=== PATIENT | female | born 1980 | race Asian ===

== ENCOUNTER 2018-03-03 22:48 | Inpatient (IN) | payer OTHER ==
[~2018-03-03 22:48] MED LIST: Ketorolac Tromethamine 30 MG/ML VIAL ONE; PHENYLEPHRINE-NS 100 MCG/ML 10 ML SYRINGE ONE; ePHEDrine/0.9% NaCl/PF SYRINGE 50 mg/10 ml ONE
[2018-03-03 23:19] VITALS: BMI 33.2
[2018-03-03] MEDS ORDERED: Labetalol HCl 100 MG/20 ML VIAL SLOW IVP PRN (23:36)
[2018-03-03] MEDS ORDERED: Ondansetron HCl/PF 4 MG/2 ML Vial IVP PRN (23:42)
[2018-03-03] MEDS ORDERED: Lactated Ringer's 1,000 ML IV SCH ×2 (23:45)
[2018-03-04] MEDS ORDERED: NIFEdipine 10 MG CAP PO SCH (00:15)
[2018-03-04 00:39] LABS: Hemoglobin 10.6 g/dL (12.0-16.0); Mean Corpuscular HGB CONC 31.5 g/dL (32.0-36.0); Mean Corpuscular Hemoglobin 19.9 pg (27.0-31.0); Mean Corpuscular Volume 63.2 fl (81.0-99.0); Mean Platelet Volume 10.2 fL (7.4-10.4); Platelet Count 275 thou/uL (130-400); RBC Distribution Width 15.2 % (11.5-14.5); Red Blood Cell (RBC) Count 5.31 mill/uL (4.20-5.40); White Blood Cell (WBC) Count 9.4 thou/uL (4.8-10.8)
[2018-03-04 00:44] LABS: ALT (SGPT) 16 U/L (8-55); AST (SGOT) 28 U/L (5-34); Alkaline Phosphatase 233 U/L (40-150); Anion Gap 12 mmol/L (10-20); BUN (Urea Nitrogen) 13 mg/dL (7.0-18.7); Bilirubin, Total 0.3 mg/dL (0.2-1.2); Calc. Creatinine Clearance 141 mL/min (70-130); Calcium 7.7 mg/dL (7.8-10.44); Carbon Dioxide 18 mmol/L (22-29); Chloride 109 mmol/L (98-107); Estimated GFR-MDRD Greater than 90; Globulin 2.2 g/dL (2.4-3.5); Glucose 92 mg/dL (70-105); Potassium 5.4 mmol/L (3.5-5.1); Protein, Total 4.2 g/dL (6.0-8.3); Sodium 134 mmol/L (136-145)
[2018-03-04 00:58] LABS: HBSAg Index 0.38 S/CO (0-0.99); Hep B Surf Ag Non-Reactive S/CO (NonReactive); Syphilis Antibody Nonreactive (Nonreactive); Syphilis Antibody Index 0.02 S/CO (<1.00 Non-Reactive)
[2018-03-04] MEDS: Bicitra 30 ML UDCUP PO SCH (01:03)
[2018-03-04] MEDS: CEFAZOLIN/Water 2 GM/20 ML SYRINGE SLOW IVP SCH (01:04)
[2018-03-04] MEDS ORDERED: Morphine PF 1 MG/ML SYR ONE (01:26)
[2018-03-04] MEDS ORDERED: Lidocaine 1% PF 5 ML VIAL ONE (01:27)
[2018-03-04] MEDS ORDERED: Ketorolac Tromethamine 30 MG/ML VIAL ONE (01:27)
[2018-03-04] MEDS ORDERED: Oxytocin 10 UNITS/ML VIAL ONE (01:27)
[2018-03-04] MEDS ORDERED: Bupivacaine 0.75% W/DEXTROSE 8.25% 2 ML AMP ONE (01:27)
[2018-03-04] MEDS ORDERED: PHENYLEPHRINE-NS 100 MCG/ML 10 ML SYRINGE ONE (01:27)
[2018-03-04] MEDS ORDERED: Naloxone HCl 0.4 mg/ml Vial IV PRN ×2 (01:28→02:44)
[2018-03-04] MEDS ORDERED: Ketorolac Tromethamine 30 MG/ML VIAL IVP PRN ×2 (01:28→02:44)
[2018-03-04] MEDS ORDERED: Promethazine HCl 25 MG SUPP PR PRN ×2 (01:28→02:44)
[2018-03-04] MEDS ORDERED: Eucerin (Mineral Oil/Petrolatum,White) 30 gm Jar TOP PRN ×2 (01:28→02:44)
[2018-03-04] MEDS ORDERED: Meperidine HCl/PF 25 MG/ML VIAL SLOW IVP PRN (01:28)
[2018-03-04] MEDS ORDERED: Naloxone HCl 0.4 mg/ml Vial IVP PRN ×4 (01:28→02:44)
[2018-03-04] MEDS ORDERED: HYDROmorphone 2 MG/ML VIAL SLOW IVP PRN (01:28)
[2018-03-04] MEDS ORDERED: Ondansetron HCl/PF 4 MG/2 ML Vial IVP PRN ×3 (01:28→02:44)
[2018-03-04] MEDS ORDERED: Promethazine HCl 25 MG/ML VIAL IM PRN ×2 (01:28→02:44)
[2018-03-04] MEDS ORDERED: diphenhydrAMINE 50 MG/ML VIAL IVP PRN ×2 (01:28→02:44)
[2018-03-04] MEDS ORDERED: Ketorolac Tromethamine 30 MG/ML VIAL IVP SCH (01:30)
[2018-03-04] MEDS ORDERED: Communication Order-Pharmacy FS SCH ×2 (01:30→02:45)
[2018-03-04] MEDS ORDERED: ePHEDrine/0.9% NaCl/PF SYRINGE 50 mg/10 ml ONE (01:35)
[2018-03-04] MEDS ORDERED: Promethazine HCl 25 MG/ML VIAL ONE (01:45)
[2018-03-04 03:06] LABS: Protein, Urine Random Quant Greater than 2000 mg/dL
[2018-03-04] MEDS: Magnesium Sulfate 20 gm/500 ml 20 GM/500 ML BAG IVPB SCH ×3 (03:17→21:44)
[2018-03-04] MEDS ORDERED: Calcium Gluconate 4.6 MEQ in Sodium Chloride 0.9% 100 ML IVPB PRN (03:35)
[2018-03-04] MEDS ORDERED: HYDROcodone/Acetaminophen 5/325 mg Tablet PO PRN ×2 (03:36)
[2018-03-04] MEDS ORDERED: Simethicone Chewable 80 MG TAB PO PRN (03:36)
[2018-03-04] MEDS ORDERED: Lanolin Ointment 7 GM TUBE TOP PRN (03:36)
[2018-03-04] MEDS ORDERED: Magnesium Sulfate 20 GM/WATER 500 ML BAG IVPB SCH (03:45)
[2018-03-04] MEDS ORDERED: Magnesium Sulfate 20 gm/500 ml 20 GM/500 ML BAG ONE (06:18)
[2018-03-04] MEDS ORDERED: Adacel (T-DAP) 0.5 ML VIAL IM ONE (09:00)
[2018-03-04] MEDS ORDERED: Prenatal Vitamin 1 TAB PO SCH (09:00)
--- NOTE | 2018-03-04 09:54 | OP ---
DATE OF PROCEDURE: 03/04/2018 PREOPERATIVE DIAGNOSES: 1. Intrauterine at 36 weeks and 3 days. 2. Di/di twin gestation. 3. Preeclampsia with severe features. POSTOPERATIVE DIAGNOSES: 1. Intrauterine at 36 weeks and 3 days. 2. Di/di twin gestation. 3. Preeclampsia with severe features. PROCEDURE PERFORMED: Primary lower transverse section. ANESTHESIA: Spinal. SURGEON: Jayesh Voss M.D. [employer]CH SERVICES MANAGER: Bere Wallace PA-C COUNT: Correct. COMPLICATIONS: None. FINDINGS: Delivery. Fetus A delivered in vertex presentation at 0156 hours with a weight of 2325 grams, Apgars of 8 and 3-vessel cord. Baby B delivered at 0158 hours, male, Apgars of 8 and 9, weight unavailable. Normal appearing uterus. No adhesions. DESCRIPTION OF PROCEDURE: The patient is a 37-year-old G1, P0 female with an intrauterine , twin-di gestation at 36 weeks and 3 days who presented to Labor and Delivery with severe range pressures and significant swelling. The patient denies shortness of breath, chest pain, and right upper quadrant tenderness. She does report swelling in her face and her hands, her feet and her legs. She denies vaginal bleeding. A decision was made quickly to move to proceed with a primary as this was the original plan with Dr. Collins who was not available for delivery. The patient was given spinal anesthesia and placed in dorsal supine position with a leftward tilt. She was prepared and draped in normal sterile fashion. Once anesthesia was deemed adequate a skin incision was made in a Pfannenstiel fashion down to the level of fascia. Fascia was incised and extended laterally with Hermosillo scissors. The fascia was dissected off bluntly and sharply from the underlying rectus muscles both superiorly and inferiorly. The peritoneal cavity was entered into bluntly and extended bluntly. An Chuckie O retractor was then inserted giving access to the lower uterine segment. A lower transverse hysterotomy was performed and baby A was brought to the hysterotomy and delivered without difficulty in vertex presentation to a sterile field. The fetus was bulb suctioned. The cord was clamped and cut and the infant was handed off to waiting attendants. Baby B was then delivered to the sterile field without difficulty in vertex presentation. The cord was clamped and cut and the infant was handed off to the waiting attendants. Cord A and cord B were marked for easy identification. The family had requested cord blood collection. Cord blood was collected making sure that the cords were properly identified to the appropriate fetus. Once that was collected, the placenta was then manually extracted and the cavity was cleared of all clot and debris. The hysterotomy was then closed with #1 Monocryl in a running locked fashion. A second imbricating layer was performed. There were a couple of spots requiring a [id number] for hemostasis. Once this was completed, the Chuckie O retractor was removed. The abdomen was irrigated and the peritoneum was then closed with 3-0 chromic in a running fashion. This fascia was closed with 0 vicryl in a running fashion. Subcutaneous fat was closed in 2 layers with 3-0 plain gut in a running fashion. Skin was closed with 4-0 Monocryl in running fashion. The procedure at this time was completed and the patient was taken to recovery room in stable condition. TIFFANY
[2018-03-04] MEDS: Sodium Chloride 0.9% 1,000 ML IV SCH ×2 (12:22→21:43)
[2018-03-04] MEDS ORDERED: Levothyroxine Sodium 50 MCG TAB PO SCH ×2 (16:26→16:45)
[2018-03-04 17:09] LABS: #Lymphocytes 0.7 thou/uL (1.20-3.40); #Monocytes 0.6 thou/uL (0.11-0.59); #Neutrophils 15.8 thou/uL (1.40-6.50); %Basophils 0.1 % (0.0-1.0); %Lymphocytes 4.3 % (21.0-51.0); %Monocytes 3.7 % (0.0-10.0); %Neutrophils 91.9 % (42.0-75.0); Hemoglobin 8.4 g/dL (12.0-16.0); Mean Corpuscular HGB CONC 32.9 g/dL (32.0-36.0); Mean Corpuscular Hemoglobin 20.9 pg (27.0-31.0); Mean Corpuscular Volume 63.6 fl (81.0-99.0); Platelet Count 230 thou/uL (130-400); RBC Distribution Width 14.9 % (11.5-14.5); Red Blood Cell (RBC) Count 4.04 mill/uL (4.20-5.40); White Blood Cell (WBC) Count 17.2 thou/uL (4.8-10.8)
[2018-03-04 17:27] LABS: ALT (SGPT) 15 U/L (8-55); AST (SGOT) 35 U/L (5-34); Albumin 1.7 g/dL (3.5-5.0); Alkaline Phosphatase 163 U/L (40-150); Anion Gap 8 mmol/L (10-20); BUN (Urea Nitrogen) 11 mg/dL (7.0-18.7); Bilirubin, Total 0.2 mg/dL (0.2-1.2); Calc. Creatinine Clearance 146 mL/min (70-130); Calcium 6.8 mg/dL (7.8-10.44); Carbon Dioxide 20 mmol/L (22-29); Chloride 107 mmol/L (98-107); Estimated GFR-MDRD Greater than 90; Globulin 2.1 g/dL (2.4-3.5); Glucose 90 mg/dL (70-105); Magnesium 6.3 mg/dL (1.6-2.6); Potassium 5.2 mmol/L (3.5-5.1); Protein, Total 3.8 g/dL (6.0-8.3); Sodium 130 mmol/L (136-145)
[2018-03-04 17:30] LABS: Anisocytosis SLIGHT = 6-15 cells (100X) (0-5/hpf); Basophilic Stippling SLIGHT = 1-2 cells (100X) (None Seen); Elliptocytes SLIGHT = 2-5 cells (100X) (0-1/hpf); Hypochromia SLIGHT = 6-15 cells (100X) (0-5/hpf); Large Platelets SLIGHT; MDiff Complete? YES; Microcytosis SLIGHT = 6-15 cells (100X) (0-5/hpf); Ovalocytes SLIGHT = 2-5 cells (100X) (0-1/hpf); PLT Morphology Comment Appears Adequate; Poikilocytosis SLIGHT = 6-15 cells (100X) (0-5/hpf); Polychromasia SLIGHT = 2-3 cells (100X) (0-2/hpf); Schistocytes SLIGHT = 2-5 cells (100X) (0-1/hpf); Target Cells SLIGHT = 2-5 cells (100X) (0-1/hpf); Tear Drops SLIGHT = 2-5 cells (100X) (0-1/hpf)
--- NOTE | 2018-03-04 22:33 | PDOC.PP ---
Post Progress Note Post Day #: 1 LICU PO intake tolerated: yes Flatus: no Ambulation: no Vital Signs (12 hours) Temp Pulse Resp BP 03/04/18 19:55 98.0 F 82 18 03/04/18 19:00 98.0 F 03/04/18 15:07 98.3 F 99 18 03/04/18 15:00 98.3 F 99 18 139/73 03/04/18 12:00 98.1 F 100 18 03/04/18 11:00 98.1 F Weight Weight 170 lb - Physical Examination General: NAD Cardiovascular: no m/r/g, RRR Respiratory: clear to auscultation bilaterally Abdominal: + bowel sounds, no distention Skin: CS incision dry & intact, no rash Neurological: no gross focal deficits Psychiatric: A&Ox3, normal affect Result Diagrams: 03/04/18 17:00 03/04/18 17:00 Additional Labs: Post Labs Blood Type O POSITIVE 03/04/18 00:14 Hep Bs Antigen Non-Reactive S/CO (NonReactive) 03/04/18 00:14 (1) Severe pre-eclampsia Code(s): O14.10 - SEVERE PRE-ECLAMPSIA, UNSPECIFIED TRIMESTER Status: Acute - Assessment/Plan ICU care on L&D. doing well. UOP gradually increasing to 80-100 per hour. Labs reviewed. DC mag 24 hr post delivery and transfer to floor in am.
[2018-03-05] MEDS: Bicitra 30 ML UDCUP PO SCH (01:25)
[2018-03-05] MEDS: CEFAZOLIN/Water 2 GM/20 ML SYRINGE SLOW IVP SCH (01:25)
[2018-03-05] MEDS: Sodium Chloride 0.9% 1,000 ML IV SCH (01:26)
[2018-03-05] MEDS ORDERED: Meperidine HCl/PF 25 MG/ML VIAL IM PRN (03:44)
[2018-03-05] MEDS ORDERED: Acetaminophen 325 MG TAB PO PRN (03:44)
[2018-03-05] MEDS ORDERED: Lanolin Ointment 7 GM TUBE TOP PRN (03:44)
[2018-03-05] MEDS ORDERED: Ondansetron HCl/PF 4 MG/2 ML Vial IVP PRN (03:44)
[2018-03-05] MEDS ORDERED: Lactated Ringer's 1,000 ML IV SCH (03:44)
[2018-03-05] MEDS ORDERED: Zolpidem Tartrate 5 MG TAB PO PRN (03:44)
[2018-03-05] MEDS ORDERED: diphenhydrAMINE 25 MG CAP PO PRN (03:44)
[2018-03-05] MEDS: Simethicone Chewable 80 MG TAB PO PRN ×3 (06:23→21:57)
--- NOTE | 2018-03-05 07:39 | PDOC.PP ---
Post Progress Note Post Day #: 2 Subjective: pt feels better. bps normalizing. edema less in face PO intake tolerated: yes Flatus: yes Ambulation: yes Vital Signs (12 hours) Temp Pulse Resp 03/05/18 04:50 98.0 F 82 18 03/05/18 03:44 20 03/05/18 03:40 98.0 F 82 18 03/04/18 19:55 98.0 F 82 18 Weight Weight 170 lb - Physical Examination General: NAD Cardiovascular: no m/r/g, RRR Respiratory: clear to auscultation bilaterally, non-labored breathing Abdominal: + bowel sounds, lochia, no distention, appropriately TTP Extremities: negative homans (B) Skin: CS incision dry & intact, no rash Neurological: no gross focal deficits Psychiatric: A&Ox3, normal affect Result Diagrams: 03/04/18 17:00 03/04/18 17:00 Additional Labs: Post Labs Blood Type O POSITIVE 03/04/18 00:14 Hep Bs Antigen Non-Reactive S/CO (NonReactive) 03/04/18 00:14 (1) Severe pre-eclampsia Code(s): O14.10 - SEVERE PRE-ECLAMPSIA, UNSPECIFIED TRIMESTER Status: Acute Qualifiers: Trimester: third trimester Qualified Code(s): O14.13 - Severe pre-eclampsia , third trimester - Assessment/Plan pt continues to improve. good uop. off mag. no cullen. continue post op care. possible am 03/07 discharge.
[2018-03-05] MEDS ORDERED: Adacel (T-DAP) 0.5 ML VIAL IM ONE (09:00)
[2018-03-05] MEDS ORDERED: Ibuprofen 800 MG TAB PO SCH (10:00)
[2018-03-05] MEDS: Levothyroxine Sodium 50 MCG TAB PO SCH (10:13)
[2018-03-05] MEDS: Prenatal Vitamin 1 TAB PO SCH (10:13)
[2018-03-05] MEDS: Docusate Calcium (SURFAK) 240 MG CAP PO SCH ×2 (10:13→21:57)
[2018-03-05] MEDS: Ferrous Sulfate 325 MG TAB PO SCH (10:14)
[2018-03-05] MEDS ORDERED: Meperidine HCl/PF 25 MG/ML VIAL SLOW IVP PRN ×2 (16:02)
[2018-03-05] MEDS ORDERED: Promethazine HCl 25 MG/ML VIAL SLOW IVP PRN (16:04)
--- NOTE | 2018-03-05 16:17 | PDOC.EVN ---
Event Note - Event Note Event Note: CTSP by floor for c/o pain. Record reviewed. Now POD#2 for twins and PIH. Magnesium was stopped at 2a this morning. She denies N/V, c/o pain with walking, movement. VSS, AF, pulse= 79. Dressing is dry and intact. Abdomen is only mildly distended. A; slow return of bowel fx. 2* to C/S and magnesium. P; CBC, chem 7, restart IV and allow only clear liquids at this time, Demerol/ Phenergan IVPB for pain only as needed Observe
[2018-03-05 16:27] LABS: #Eosinphils 0.1 thou/uL (0.0-0.7); #Monocytes 0.7 thou/uL (0.11-0.59); #Neutrophils 11.5 thou/uL (1.40-6.50); %Basophils 0.2 % (0.0-1.0); %Eosinophils 0.6 % (0.0-10.0); %Lymphocytes 7.6 % (21.0-51.0); %Monocytes 5.1 % (0.0-10.0); %Neutrophils 86.5 % (42.0-75.0); Hemoglobin 8.4 g/dL (12.0-16.0); Mean Corpuscular HGB CONC 32.6 g/dL (32.0-36.0); Mean Corpuscular Hemoglobin 20.5 pg (27.0-31.0); Mean Platelet Volume 11.2 fL (7.4-10.4); Platelet Count 210 thou/uL (130-400); RBC Distribution Width 14.7 % (11.5-14.5); Red Blood Cell (RBC) Count 4.08 mill/uL (4.20-5.40); White Blood Cell (WBC) Count 13.3 thou/uL (4.8-10.8)
[2018-03-05 16:49] LABS: BUN (Urea Nitrogen) 11 mg/dL (7.0-18.7); Calc. Creatinine Clearance 139 mL/min (70-130); Calcium 6.8 mg/dL (7.8-10.44); Carbon Dioxide 24 mmol/L (22-29); Chloride 107 mmol/L (98-107); Estimated GFR-MDRD Greater than 90; Glucose 75 mg/dL (70-105); Potassium 4.6 mmol/L (3.5-5.1); Sodium 133 mmol/L (136-145)
[2018-03-05 16:55] LABS: Anion Gap 7 mmol/L (10-20)
[2018-03-05] MEDS: Ibuprofen 800 MG TAB PO SCH ×2 (17:39→20:43)
[2018-03-05] MEDS: Sodium Chloride 0.9% 30 ML ONE ×2 (17:39→21:58)
[2018-03-05] MEDS ORDERED: Bisacodyl 10 MG SUPP PR PRN (20:52)
[2018-03-05] MEDS ORDERED: Morphine 4 MG/ML Carpuject SLOW IVP PRN (20:56)
[2018-03-05] MEDS ORDERED: Morphine 5 MG/ML SYRINGE SLOW IVP PRN (21:30)
[2018-03-05] MEDS: HYDROcodone/Acetaminophen 5/325 mg Tablet PO PRN (21:43)
[2018-03-05] MEDS ORDERED: CEFAZOLIN 2 GM in Sodium Chloride 0.9% 100 ML IVPB SCH (21:45)
[2018-03-05] MEDS ORDERED: Sodium Chloride 0.9% 20 ML ONE (21:55)
[2018-03-05] MEDS ORDERED: CEFAZOLIN/Water 2 GM/20 ML SYRINGE SLOW IVP SCH (22:00)
--- NOTE | 2018-03-05 22:49 | PRG ---
DATE OF SERVICE: 03/05/2018 HISTORY OF PRESENT ILLNESS: The patient is postop day #1, status post primary for twin ges tation and presence of preeclampsia with severe features and last exam on Baby A was breech. The pat ericka has been complaining of extreme amount of pain in her abdomen today and was asked to review and examine the patient. The patient has remained afebrile, though her most recent temperature was 99.5. Reviewing her lab work, she has a white count, it has been dropping since yesterday evening, the ev ening of postop day 0 and currently is 13.3 down from 17.2. Her hemoglobin is stable 8.5, previous h emoglobin is 8.4, platelets are 210,000. Her neutrophil percentage has dropped from 91-86 and her ne utrophil numbers have dropped from 15.8 to 11.5, no bands present. The patient reports that she has a lot of crampy pain and she is concerned that she has an ileus and is concerned that she may have in fection. Her skin has been exquisitely tender in her abdomen. On evaluation, the patient's lower ab domen around close the incision has no more color to it, but perhaps a slight erythematous look. The areas that has this slight change in color is the area that seems to be tender to touch. We removed the Aquacel and Tegaderm over her surgical incision and there is no erythema around her incision and there is no purulent drainage or blood or anything of significance. The area around her incision is soft. There is no induration, no fluctuance. The patient denies any problems with urination. In r eviewing the patient's pain medication history, she does report she has only taken today ibuprofen an d one dose of Demerol, Phenergan. We did go over typical medication use just after surgery and sugge sted that this may be in part contributing to her pain. ASSESSMENT AND PLAN: The patient is a 37-year-old female postop day 1, status post primary for twin gestation in the presence of preeclampsia with severe features. She did have significant t hird spacing when she first arrived and continues to have significant edema, though it does appear im proved since her first presentation. There is a little concern of having an intra-abdominal infectio us process at this time or endometritis or wound infection as her white count is dropping, she remain s afebrile, but due to this erythema that she is having, which may be associated with intense amount of edema that she has experienced, may also be a cellulitis that is developing. I have agreed to kwabena ce the patient on Ancef tonight and we will see how she does over the next 24 hours of medication. I n the morning on reevaluation, I hope to have less erythema or color change and certainly less tender ness to touch. The patient has agreed to take hydrocodone more routinely for now and we will be givi ng her 4 mg of morphine IV to assist with immediate pain control. A CBC will be drawn again in the [facility] for reevaluation. We will continue to monitor her more closely than typical given her finding s and will make adjustment as necessary.
[2018-03-06] MEDS: Dextrose 5%-Lactated Ringers 1,000 ML IV SCH ×2 (01:48→10:07)
[2018-03-06] MEDS: Ferrous Sulfate 325 MG TAB PO SCH ×4 (01:49→22:11)
[2018-03-06] MEDS: Simethicone Chewable 80 MG TAB PO PRN ×2 (04:10→15:26)
[2018-03-06] MEDS: HYDROcodone/Acetaminophen 5/325 mg Tablet PO PRN ×4 (04:10→21:04)
[2018-03-06] MEDS ORDERED: Sodium Chloride 0.9% 500 ML IV SCH (05:00)
[2018-03-06] MEDS: Ibuprofen 800 MG TAB PO SCH ×3 (05:14→22:07)
[2018-03-06] MEDS: CEFAZOLIN 1 GM in Sodium Chloride 0.9% 100 ML IVPB SCH ×2 (05:14→15:24)
[2018-03-06 05:58] LABS: Band 1 % (5-11); Hemoglobin 7.4 g/dL (12.0-16.0); Hypochromia SLIGHT = 6-15 cells (100X) (0-5/hpf); Lymphocytes 10 % (21-51); MDiff Complete? YES; Mean Corpuscular HGB CONC 30.9 g/dL (32.0-36.0); Mean Corpuscular Hemoglobin 19.7 pg (27.0-31.0); Mean Corpuscular Volume 63.9 fl (81.0-99.0); Mean Platelet Volume 8.2 fL (7.4-10.4); Monocytes 2 % (0-10); Neutrophil 87 % (42-75); PLT Morphology Comment Appears Adequate; Platelet Count 225 thou/uL (130-400); RBC Distribution Width 15.1 % (11.5-14.5); Red Blood Cell (RBC) Count 3.77 mill/uL (4.20-5.40); White Blood Cell (WBC) Count 10.7 thou/uL (4.8-10.8)
--- NOTE | 2018-03-06 08:30 | PRG ---
DATE OF SERVICE: 03/06/2018 SUBJECTIVE: The patient reports she is feeling much better this morning. Her pain is much better co ntrolled now that she is on schedule pain medication. She also reports her skin is not as tender to palpation since beginning antibiotics and pain medicine. The patient also reports she is ambulating, tolerating p.o., voiding on her own. She has passed flatus. PHYSICAL EXAMINATION: VITAL SIGNS: Today, blood pressure is 140/75, temperature 98.4, pulse is 75, respiratory rate of 16. GENERAL: She appears to be in no acute distress. She is alert and oriented, cooperative and pleasan t to interact with. HEENT: Head is normocephalic and atraumatic. EXTREMITIES: She has significant edema throughout her body still, including edema in the bulbar conj unctiva of her eye. Lower extremities are tense at the feet and below the knee, but there is overall improvement since admission. LABORATORY DATA: Today, white count is 10.7, down from 13.3 and 17.2 at its peak. H and H 7.4 and 2 4.1 and platelets of 225,000. ASSESSMENT AND PLAN: The patient is a 37-year-old female, who is now postoperative day 2, status pos t a primary for twins with preeclampsia with severe features. The patient had been schedul ed for a with baby A being breech. Patient is feeling better today since institution of an tibiotics and regular pain medication. I am not sure of the effect of the necessity of the antibioti c; however, patient does report that the skin is less tender. We will continue the antibiotics for 2 4 hours in the event that she was developing a cellulitis. The coloring of the skin remains the same . We will continue postoperative care. Dr. Dwayne Collins will return tomorrow.
[2018-03-06] MEDS: Prenatal Vitamin 1 TAB PO SCH (10:09)
[2018-03-06] MEDS: Docusate Calcium (SURFAK) 240 MG CAP PO SCH ×2 (10:09→22:11)
[2018-03-06] MEDS: Levothyroxine Sodium 50 MCG TAB PO SCH (10:10)
--- NOTE | 2018-03-06 11:09 | PDOC.EVN ---
Event Note - Event Note Event Note: Note: Dr Voss ordered FRANKIE house due to Bilateral LE edems. Due to edema, I do not want FRANKIE house to do inadverent tounaquet effect. So, I will order Lasix 20mg SIVP for now to mobilze the fluid. Reviewed with RN.
[2018-03-06] MEDS ORDERED: Furosemide 20 MG/2 ML VIAL SLOW IVP SCH (11:15)
[2018-03-06] MEDS ORDERED: Sodium Chloride 0.9% 10 ML ONE (14:47)
[2018-03-06] MEDS ORDERED: Furosemide 20 MG TAB PO SCH ×2 (16:00→22:00)
--- NOTE | 2018-03-06 17:31 | PDOC.EVN ---
Event Note - Event Note Event Note: Bedjon: @1730: Postop day 2: S/P CS, twins, severe PIH. BPs ok. I have seen the patient ust now again, for pm bedcheck. States passed gas and BM today. Still with 3+ Bilateral LE edema. 20mg po lasix given about 1 hour ago...will redose at 0500 to mobile fluid. Track urine output by hat in toilet.
--- NOTE | 2018-03-06 20:21 | PDOC.EVN ---
Event Note - Event Note Event Note: Patient requests redose of lasix quicker than 0500 to aid leg edema resolution. Voided about 500ml last void. Has recieved one dose of oral lasix at around 1630. I will cancel the 0500 dose and give the second oral dose 6 hours from the first.
[2018-03-07] MEDS: HYDROcodone/Acetaminophen 5/325 mg Tablet PO PRN ×2 (03:45→12:08)
[2018-03-07] MEDS ORDERED: Furosemide 20 MG TAB PO SCH ×2 (05:00→15:30)
[2018-03-07] MEDS: Ibuprofen 800 MG TAB PO SCH ×3 (05:50→22:39)
--- NOTE | 2018-03-07 06:56 | PDOC.PP ---
Post Progress Note Post Day #: 3 Subjective: Voided 3 liters after lasix po X 2...feels legs are alot better. Debbie po. Would like to stay until tomorrow PO intake tolerated: yes Flatus: yes Ambulation: yes Vital Signs (12 hours) Temp Pulse Resp BP Pulse Ox 03/07/18 03:45 98.4 F 66 18 141/78 H 03/06/18 23:50 98.0 F 76 18 162/81 H 99 03/06/18 19:43 98.0 F 75 18 162/82 H 99 Weight Weight 170 lb - Physical Examination General: NAD Cardiovascular: no m/r/g Abdominal: + bowel sounds, lochia, no distention, appropriately TTP Extremities: negative homans (B) Skin: CS incision dry & intact Neurological: no gross focal deficits Psychiatric: A&Ox3 Result Diagrams: 03/06/18 05:12 03/05/18 16:20 Additional Labs: Post Labs Blood Type O POSITIVE 03/04/18 00:14 Hep Bs Antigen Non-Reactive S/CO (NonReactive) 03/04/18 00:14 - Assessment/Plan Postop CS day 3... good response to lasix. LE edema now +2 from 3+. Feels better. Mobilization of fluid should occur now on PPD3. Severe Preeclampsia HX but BPs ok. We will observe today and plan for AM discharge on 03/08
[2018-03-07] MEDS: Docusate Calcium (SURFAK) 240 MG CAP PO SCH (09:13)
[2018-03-07] MEDS: Prenatal Vitamin 1 TAB PO SCH (09:13)
[2018-03-07] MEDS: Ferrous Sulfate 325 MG TAB PO SCH (09:13)
[2018-03-07] MEDS: Levothyroxine Sodium 50 MCG TAB PO SCH (09:16)
--- NOTE | 2018-03-07 15:25 | PDOC.EVN ---
Event Note - Event Note Event Note: Nurse called to notify increased BP systolic 160-170, increase edema from this AM and decreased urine output this afternoon. No SOB or difficulty breathing per RN report. Lasix 20mg ordered, CMP ordered and Procardia 30mg XL discussed and ordered.
[2018-03-07] MEDS ORDERED: NIFEdipine XL 30 MG TAB PO SCH (17:00)
[2018-03-07 22:39] LABS: Anion Gap 9 mmol/L (10-20); BUN (Urea Nitrogen) 7 mg/dL (7.0-18.7); Calc. Creatinine Clearance 155 mL/min (70-130); Calcium 7.8 mg/dL (7.8-10.44); Carbon Dioxide 26 mmol/L (22-29); Chloride 101 mmol/L (98-107); Estimated GFR-MDRD Greater than 90; Glucose 123 mg/dL (70-105); Sodium 132 mmol/L (136-145)
[2018-03-08] MEDS: Ferrous Sulfate 325 MG TAB PO SCH ×3 (01:04→21:13)
[2018-03-08] MEDS: Docusate Calcium (SURFAK) 240 MG CAP PO SCH ×3 (01:04→21:14)
[2018-03-08] MEDS ORDERED: Labetalol 100 MG TAB PO SCH (03:30)
[2018-03-08] MEDS: Ibuprofen 800 MG TAB PO SCH ×3 (05:17→21:12)
[2018-03-08] MEDS: Labetalol 100 MG TAB PO SCH ×2 (09:29→21:12)
[2018-03-08] MEDS: Prenatal Vitamin 1 TAB PO SCH (09:29)
[2018-03-08] MEDS: Levothyroxine Sodium 50 MCG TAB PO SCH (09:30)
[2018-03-08] MEDS: NIFEdipine XL 30 MG TAB PO SCH (09:30)
--- NOTE | 2018-03-08 16:12 | PDOC.PP ---
Post Progress Note Post Day #: 4 Subjective: POD 4, BP still w severe range over night w Procardia, Labetalol added with improvement to consistent mild range or lower. Swelling better since yesterday and voiding more regularly now. PO intake tolerated: yes Flatus: yes Ambulation: yes Vital Signs (12 hours) Temp Pulse Resp BP BP 03/08/18 09:30 94 143/91 H 03/08/18 09:29 94 142/93 H 03/08/18 09:00 98.4 F 94 20 142/93 H 03/08/18 08:00 98.4 F 94 18 03/08/18 04:52 98.9 F 72 16 158/77 H Weight Weight 170 lb - Physical Examination General: NAD Respiratory: non-labored breathing Abdominal: no distention Extremities: negative homans (B) Skin: CS incision dry & intact, no rash Neurological: no gross focal deficits Psychiatric: A&Ox3, normal affect Result Diagrams: 03/06/18 05:12 03/07/18 22:11 Additional Labs: Post Labs Blood Type O POSITIVE 03/04/18 00:14 Hep Bs Antigen Non-Reactive S/CO (NonReactive) 03/04/18 00:14 (1) Dichorionic diamniotic twin gestation Code(s): O30.049 - TWIN , DICHORIONIC/DIAMNIOTIC, UNSP TRIMESTER Status: Acute (2) 36 weeks gestation of Code(s): Z3A.36 - 36 WEEKS GESTATION OF Status: Acute (3) delivery delivered Code(s): O82 - ENCOUNTER FOR DELIVERY WITHOUT INDICATION Status: Acute (4) Severe pre-eclampsia Code(s): O14.10 - SEVERE PRE-ECLAMPSIA, UNSPECIFIED TRIMESTER Status: Acute Qualifiers: Trimester: third trimester Qualified Code(s): O14.13 - Severe pre-eclampsia , third trimester - Assessment/Plan POD4 sp 1LTCS w severe preeclampsia. BP labile sp delivery, better control w Procardia XL 30mg a day and labetalol 100mg BID. UOP steady and swelling improving daily. One baby nursing in room other in NICU. Discussed staying one more night to make sure that BP and UOP are appropriate for DC, pt agrees.
[2018-03-09] MEDS: Ibuprofen 800 MG TAB PO SCH ×2 (05:13→15:25)
[2018-03-09] MEDS: Ferrous Sulfate 325 MG TAB PO SCH (09:28)
[2018-03-09] MEDS: Prenatal Vitamin 1 TAB PO SCH (09:29)
[2018-03-09] MEDS: Levothyroxine Sodium 50 MCG TAB PO SCH (09:29)
[2018-03-09] MEDS: NIFEdipine XL 30 MG TAB PO SCH (09:29)
[2018-03-09] MEDS: Docusate Calcium (SURFAK) 240 MG CAP PO SCH (09:29)
[2018-03-09] MEDS: Labetalol 100 MG TAB PO SCH (09:32)
--- NOTE | 2018-03-09 09:45 | PDOC.PP ---
Post Progress Note Post Day #: 5 Subjective: urinating often and appropriate volume, no SOB/MURCIA, breast feeding and pumping, ambulating well, pain controlled, no dizziness, ready for DC home PO intake tolerated: yes Flatus: yes Ambulation: yes Vital Signs (12 hours) Temp Pulse Resp BP BP BP 03/09/18 09:32 91 139/89 03/09/18 09:29 91 139/89 03/09/18 05:15 98.2 F 89 20 139/80 03/08/18 23:50 98.2 F 91 18 125/73 Weight Weight 170 lb - Physical Examination General: NAD Respiratory: non-labored breathing Abdominal: no distention, appropriately TTP Fundus firm & at: below umb Extremities: negative homans (B) Skin: CS incision dry & intact (dressing dry and clean) Neurological: no gross focal deficits Psychiatric: A&Ox3, normal affect Deviation from normal: improvement in LE edema Result Diagrams: 03/06/18 05:12 03/07/18 22:11 Additional Labs: Post Labs Blood Type O POSITIVE 03/04/18 00:14 Hep Bs Antigen Non-Reactive S/CO (NonReactive) 03/04/18 00:14 (1) Dichorionic diamniotic twin gestation Code(s): O30.049 - TWIN , DICHORIONIC/DIAMNIOTIC, UNSP TRIMESTER Status: Acute (2) 36 weeks gestation of Code(s): Z3A.36 - 36 WEEKS GESTATION OF Status: Acute (3) delivery delivered Code(s): O82 - ENCOUNTER FOR DELIVERY WITHOUT INDICATION Status: Acute (4) Severe pre-eclampsia Code(s): O14.10 - SEVERE PRE-ECLAMPSIA, UNSPECIFIED TRIMESTER Status: Acute Qualifiers: Trimester: third trimester Qualified Code(s): O14.13 - Severe pre-eclampsia , third trimester - Assessment/Plan POD 5 doing well sp 1CS for di/di twins and severe preeclampsia @ 36 weeks. Improving clinically daily and meeting post op goals. BP well controlled w labetalol 100 mg BID and procardia 30 XL daily. Will continue iron at home on DC. Plan for DC, medication instructions reviewed, plan for BP check and incision check next week.
[2018-03-09 13:10] VITALS: BP 154/79; TEMP 97.9
--- NOTE | 2018-03-09 14:36 | DIS ---
DATE OF ADMISSION: 03/04/2018 DATE OF DISCHARGE: 03/09/2018 ADMISSION DIAGNOSES: A 37-year-old G1 at 36 weeks with dichorionic diamniotic and preeclampsia with severe features. DISCHARGE DIAGNOSES: A 37-year-old G1 at 36 weeks with dichorionic diamniotic and preeclampsia with severe features, status post delivery. HOSPITAL PROCEDURES: Primary low transverse section. HOSPITAL COURSE: Ms. Yosvany Moise was admitted on 03/04/2018 with noted severe preeclampsia in the setting of a dichorionic diamniotic at 36 weeks. She underwent primary section with magnesium recovery for seizure prophylaxis. Postoperatively, the patient was noted to have a significant amount of edema as well as blood pressures that continued within the severe range on postoperative day 2 and 3. The patient received several doses of Lasix , which encouraged her diuresis and her edema dramatically decreased. Her blood pressures were stable and within normal range by postoperative day #5 with antihypertensive regimen, which included Procardia 30 mg once a day and labetalol 100 mg twice a day. The patient was counseled for medication use at home iron for anemia and pain medication use as needed postoperatively. She was also counseled on signs worsening severe preeclampsia and reasons to call or present to the hospital if signs were noted. The patient was discharged home on postoperative day 5 in good condition and clinically improved and doing well. The patient will likely stay for bed and breakfast service one of her babies is still in the NICU and transitioning to a regular bed today. The patient's questions were answered, followup plan includes a visit early next week in my office with a blood pressure check and an incision check. TIFFANY
== END 2018-03-09 15:45 | disposition home or self-care (01) | DRG 765 ==
LOC: L&D/OP 22:48 → L&D 23:58 → 3SE 03-05 03:23 → 3SW 03-05 14:35
PROVIDERS: ADMIT Obstetrics & Gynecology; ATTEND Obstetrics & Gynecology
PROC: 10D00Z1 Extraction of Products of Conception, Low, Open Approach (ICD-10-PCS; principal; 2018-03-04)
DX: O14.14 Severe pre-eclampsia complicating childbirth (principal); O30.043 Twin pregnancy, dichorionic/diamniotic, third trimester; Z37.2 Twins, both liveborn; Z3A.36 36 weeks gestation of pregnancy; O99.284 Endocrine, nutritional and metabolic diseases complicating childbirth; E03.9 Hypothyroidism, unspecified
CPT/HCPCS: 36415; 51702; 59025; 80048; 80053; 82570; 83735; 83880; 84156; 85007; 85025; 85027; 86780; 86850; 86900; 86901; 87081; 87340; 88307; 90715; 99285; J2270; A4216; J0690; J1885; J1940; J2001; J2175; J2274; J2405; J2550; J2590; J3475; J3490; J7050